=== PATIENT | male | born 1935 | race Caucasian/White ===

== ENCOUNTER 2018-05-15 21:38 | Inpatient (IN) | payer OTHER ==
[2018-05-15] MEDS: morphine 4 MG/ML VIAL IV (22:48)
[2018-05-15] MEDS: ONDANSETRON 4 MG INJ IV (22:48)
[2018-05-15 22:58] LABS: ABNORMAL IP MESSAGE 1; ADD MAN DIFF? NO; BASOPHILS % 0.4 % (0.0-2.0); EOSINOPHILS # 2.1 10^3/ul (0.0-0.5); HEMOGLOBIN 13.4 g/dl (14.0-18.0); LYMPHOCYTES # 2.3 10^3/ul (0.8-2.9); LYMPHOCYTES % 22.1 % (15.0-51.0); MEAN CORPUSCULAR HEMOGLOBIN 29.5 pg (29.0-33.0); MEAN CORPUSCULAR HGB CONC 34.4 g/dl (32.0-37.0); MEAN CORPUSCULAR VOLUME 85.9 fl (82.0-101.0); MEAN PLATELET VOLUME 11.5 fl (7.4-10.4); MONOCYTE # 0.6 10^3/ul (0.3-0.9); MONOCYTES % 5.9 % (0.0-11.0); NEUTROPHIL # 5.4 10^3/ul (1.6-7.5); NEUTROPHILS % 51.2 % (39.0-77.0); PLATELET COUNT 202 10^3/UL (140-415); POSITIVE DIFF @See below; RED BLOOD COUNT 4.54 10^6/ul (4.70-6.10); RED CELL DISTRIBUTION WIDTH 12.6 % (11.5-14.5)
[2018-05-15 22:58] LABS: WHITE BLOOD COUNT 10.6 10^3/ul (4.8-10.8)
[2018-05-15 23:01] LABS: ADD UMIC YES; UR ASCORBIC ACID 40 mg/dL (NEGATIVE); UR BILIRUBIN (Dip) NEGATIVE (NEGATIVE); UR BLOOD (Dip) NEGATIVE (NEGATIVE); UR CLARITY CLEAR (CLEAR); UR COLOR YELLOW (YELLOW); UR GLUCOSE (Dip) 3+ mg/dL (NEGATIVE); UR KETONES (Dip) NEGATIVE (NEGATIVE); UR LEUKOCYTE ESTERASE (Dip) NEGATIVE Leu/ul (NEGATIVE); UR NITRITE (Dip) NEGATIVE (NEGATIVE); UR RBC 3 /HPF (0-5); UR SPECIFIC GRAVITY (Dip) 1.026 (1.003-1.030); UR TOTAL PROTEIN (Dip) 1+ mg/dl (NEGATIVE); UR UROBILINOGEN (Dip) NEGATIVE (NEGATIVE); UR WBC 1 /HPF (0-5)
[2018-05-15 23:20] LABS: ALANINE AMINOTRANSFERASE 17 IU/L (13-69); ALBUMIN 3.9 g/dl (3.3-4.9); ALKALINE PHOSPHATASE 88 IU/L (42-121); ANION GAP 10 (5-13); ASPARTATE AMINO TRANSFERASE 15 IU/L (15-46); BILIRUBIN,INDIRECT 0.3 mg/dl (0-1.1); BILIRUBIN,TOTAL 0.3 mg/dl (0.2-1.3); BLOOD UREA NITROGEN 18 mg/dl (7-20); CALCIUM 9.5 mg/dl (8.4-10.2); CARBON DIOXIDE 28 mmol/L (21-31); CHLORIDE 100 mmol/L (97-110); CREATININE 1.06 mg/dl (0.61-1.24); GLUCOSE 350 mg/dl (70-220); LIPASE 142 U/L (23-300); POTASSIUM 3.5 mmol/L (3.5-5.1); SODIUM 138 mmol/L (135-144); TOTAL PROTEIN 6.9 g/dl (6.1-8.1)
[2018-05-15 23:30] LABS: TROPONIN-I < 0.012 ng/ml (0.000-0.120)
[2018-05-16] MEDS: hydrALAzine 20 MG INJ IV (04:15)
[2018-05-16] MEDS: LABETALOL HCL 20MG INJ IV (05:22)
[2018-05-16] MEDS: PIPER-TAZO 3.375 GM IV (PMX) 100 ML IVPB ×3 (05:22→17:30)
[2018-05-16] MEDS ORDERED: NACL 0.9% 3 ML SYG IV (08:30)
[2018-05-16] MEDS ORDERED: ONDANSETRON 4 MG INJ IV (08:30)
[2018-05-16] MEDS ORDERED: morphine 2 MG INJ IV (08:30)
[2018-05-16] MEDS: SOD CHLORIDE 0.9% 1,000 ML IV ×2 (08:55→21:27)
[2018-05-16] MEDS: INSULIN ASPART [NOVOLOG] 3 ML PEN SC ×4 (09:20→20:44)
[2018-05-16] MEDS: ATORVASTATIN 40 MG TAB PO (20:32)
[2018-05-17] MEDS: INSULIN ASPART [NOVOLOG] 3 ML PEN SC ×6 (01:00→21:26)
[2018-05-17] MEDS: PIPER-TAZO 3.375 GM IV (PMX) 100 ML IVPB ×3 (01:59→16:59)
[2018-05-17] MEDS: ACCU-CHEK XX (02:02)
[2018-05-17 06:13] LABS: ADD MAN DIFF? NO
[2018-05-17 06:18] LABS: ABNORMAL IP MESSAGE 1; BASOPHIL # 0.1 10^3/ul (0.0-0.1); BASOPHILS % 0.5 % (0.0-2.0); EOSINOPHILS # 3.2 10^3/ul (0.0-0.5); EOSINOPHILS % 27.6 % (0.0-7.0); HEMATOCRIT 39.8 % (42.0-52.0); HEMOGLOBIN 13.5 g/dl (14.0-18.0); LYMPHOCYTES # 3.1 10^3/ul (0.8-2.9); LYMPHOCYTES % 26.3 % (15.0-51.0); MEAN CORPUSCULAR HEMOGLOBIN 29.5 pg (29.0-33.0); MEAN CORPUSCULAR HGB CONC 33.9 g/dl (32.0-37.0); MEAN CORPUSCULAR VOLUME 87.1 fl (82.0-101.0); MEAN PLATELET VOLUME 11.6 fl (7.4-10.4); MONOCYTE # 0.7 10^3/ul (0.3-0.9); MONOCYTES % 6.2 % (0.0-11.0); NEUTROPHIL # 4.6 10^3/ul (1.6-7.5); NEUTROPHILS % 39.1 % (39.0-77.0); PLATELET COUNT 202 10^3/UL (140-415); POSITIVE DIFF @See below; RED BLOOD COUNT 4.57 10^6/ul (4.70-6.10); RED CELL DISTRIBUTION WIDTH 12.9 % (11.5-14.5)
[2018-05-17 06:18] LABS: WHITE BLOOD COUNT 11.7 10^3/ul (4.8-10.8)
[2018-05-17 06:46] LABS: ANION GAP 9 (5-13); BLOOD UREA NITROGEN 12 mg/dl (7-20); CALCIUM 9.2 mg/dl (8.4-10.2); CARBON DIOXIDE 29 mmol/L (21-31); CHLORIDE 103 mmol/L (97-110); GLUCOSE 178 mg/dl (70-220); POTASSIUM 3.7 mmol/L (3.5-5.1); SODIUM 141 mmol/L (135-144)
[2018-05-17] MEDS: SOD CHLORIDE 0.9% 1,000 ML IV (07:53)
[2018-05-17] MEDS: DOCUSATE SODIUM 100 MG CAP PO ×2 (12:48→21:25)
[2018-05-17] MEDS: POLYETHYLENE GLYCOL 17 GM PACKET PO (12:48)
[2018-05-17] MEDS: SENNA TAB PO (12:48)
[2018-05-17] MEDS: hydrALAzine 20 MG INJ IV (15:33)
[2018-05-17] MEDS: CHLORTHALIDONE 25 MG TAB PO (17:45)
[2018-05-17] MEDS: ATORVASTATIN 40 MG TAB PO (21:25)
[2018-05-18] MEDS: PIPER-TAZO 3.375 GM IV (PMX) 100 ML IVPB ×2 (02:07→10:13)
[2018-05-18] MEDS: ACCU-CHEK XX (02:09)
[2018-05-18] MEDS: SOD CHLORIDE 0.9% 1,000 ML IV ×2 (06:09→13:27)
[2018-05-18] MEDS: INSULIN ASPART [NOVOLOG] 3 ML PEN SC ×2 (08:13→12:02)
[2018-05-18] MEDS: DOCUSATE SODIUM 100 MG CAP PO (08:49)
[2018-05-18] MEDS: SENNA TAB PO (08:49)
[2018-05-18] MEDS: CHLORTHALIDONE 25 MG TAB PO (09:18)
[2018-05-18] MEDS ORDERED: GLUCOSE GEL 15 GRAM TUBE PO ×2 (09:30)
[2018-05-18] MEDS ORDERED: GLUCAGON 1 MG INJ IM (09:30)
[2018-05-18] MEDS ORDERED: GLUCOSE GEL 15 GRAM TUBE BUCCAL (09:30)
[2018-05-18] MEDS ORDERED: DEXTROSE 50% 50 ML SYRINGE IV ×2 (09:30)
== END 2018-05-18 16:10 | disposition home or self-care (01) | DRG 395 ==
LOC: E/R 21:38 → PP2 05-16 05:04
DX: K35.80 Unspecified acute appendicitis (principal); I10 Essential (primary) hypertension; E78.5 Hyperlipidemia, unspecified; E11.9 Type 2 diabetes mellitus without complications; D64.9 Anemia, unspecified; Z87.891 Personal history of nicotine dependence; Z79.84 Long term (current) use of oral hypoglycemic drugs
CPT/HCPCS: 36415; 71045; 74176; 80048; 80053; 81001; 82962; 83690; 84484; 85025; 90686; 93005; 96374; 96375; 99285-25